=== PATIENT | female | born 1985 | race Caucasian/White ===

== ENCOUNTER → 2021-04-06 | Day surgery (SDC) | payer OTHER ==
[~2021-04-06] VITALS: Ht 160 cm; Wt 61.0 kg
[~2021-04-06] MED LIST: ACETAMINOPHEN500 M1 PO; COLACE100 MG PO; MOTRIN600 MG PO; OXY-IR 5MG5 MG PO; ZOFRAN8 MG PO
[2021-04-06 11:29] LABS: HCG (URINE) SCREEN NEGATIVE (NEGATIVE)
== END | disposition home or self-care (01) ==
LOC: FAS 09:38
PROVIDERS: Anesthesiology
DX: K81.1 Chronic cholecystitis (principal); G43.019 Migraine without aura, intractable, without status migrainosus; M19.90 Unspecified osteoarthritis, unspecified site; F17.210 Nicotine dependence, cigarettes, uncomplicated
CPT/HCPCS: 84703; J1100; J1170; J1644; J2250; J2405; J2704; J3010; J7120